=== PATIENT | male | born 1980 | race Caucasian/White ===

== ENCOUNTER 2020-11-10 13:41 | Emergency (ER) | payer MEDICARE, MEDICAID ==
[~2020-11-10] VITALS: Ht 182.9 cm; Wt 113.6 kg
[2020-11-10 13:55] VITALS: BP 123/68
--- NOTE | 2020-11-10 14:49 | RAD ---
Right foot 3 views, right ankle 3 views. HISTORY: Pain Right ankle 3 views were taken of the right ankle. There is not evidence of an acute fracture or osseous abnormal ity. Right foot 3 views were taken of the right foot. There is not evidence of an acute fracture or osseous abnormali ty. IMPRESSION: 1. No acute osseous normality right foot. 2. No acute osseous abnormality right ankle. Electronically signed by: Shady Raya MD (11/10/2020 2:47 PM) [id number]
--- NOTE | 2020-11-10 15:22 | PHYS DOC ---
Past Medical History Past Medical History: Depression, Other Past Surgical History: Appendectomy, Other Additional Past Surgical Histo: KNEE Smoking Status: Current Every Day Smoker Additional Information: 1 PPD Alcohol Use: None General Adult EDM: Chief Complaint: TOE PROBLEM HPI: HPI: Patient is a 39 year old male with history of depression presented to the ED today complaining of mild intermittent right fifth toe pain and right ankle pain, states symptoms are chronic but got worse in the last couple days. Denies any injury but states has been doing jumping jacks for exercise. States symptoms are worse when he is doing jumping jacks. Denies anything specifically relieving the symptoms. Review of Systems: Review of Systems: Constitutional: Denies fever or chills. [] Musculoskeletal: Reports right ankle and right fifth toe pain. Denies back pain Integument: Denies rash. [] Neurologic: Denies headache, focal weakness or sensory changes. [] Psychiatric: Denies depression or anxiety. [] Heart Score: C/O Chest Pain: N/A Risk Factors: Risk Factors: DM, Current or recent (<one month) smoker, HTN, HLP, family history of CAD, obesity. Risk Scores: Score 0 - 3: 2.5% MACE over next 6 weeks - Discharge Home Score 4 - 6: 20.3% MACE over next 6 weeks - Admit for Clinical Observation Score 7 - 10: 72.7% MACE over next 6 weeks - Early Invasive Strategies Allergies: Allergies: Allergies Coded Allergies Type Severity Reaction Last Updated Verified No Known Drug Allergies 11/10/20 No Physical Exam: PE: Constitutional: Well developed, well nourished, no acute distress, non-toxic appearance. [] Skin: Warm, dry, no erythema, no rash. [] Back: No tenderness, no CVA tenderness. [] Extremities: Right ankle with no edema, no ecchymosis, no tenderness on exam, full range of motion to the right ankle, right foot fifth toe appears to be slightly underneath the fourth toe, patient states this is chronic. Full range of motion to the right foot. No navicular bone tenderness, no tenderness on the base of the fifth metatarsal. +2 right pedal pulse. Cap refill less than 2 seconds to right toes Neurologic: Alert and oriented X 3, normal motor function, normal sensory function, no focal deficits noted. [] Psychologic: Affect normal, judgement normal, mood normal. [] Current Patient Data: Vital Signs: Vital Signs Date Time Temp Pulse Resp B/P (MAP) Pulse Ox O2 Delivery O2 Flow Rate FiO2 11/10/20 13:55 98.0 85 20 123/68 (86) 97 Room Air 98.0 EKG: EKG: [] Radiology/Procedures: Radiology/Procedures: []PROCEDURE: FOOT RIGHT 3V Right foot 3 views, right ankle 3 views. HISTORY: Pain Right ankle 3 views were taken of the right ankle. There is not evidence of an acute fracture or osseous abnormality. Right foot 3 views were taken of the right foot. There is not evidence of an acute fracture or osseous abnormality. IMPRESSION: 1. No acute osseous normality right foot. 2. No acute osseous abnormality right ankle. Electronically signed by: Patti Carney MD (11/10/2020 2:47 PM) [id number] DICTATED and SIGNED BY: PATTI CARNEY MD DATE: 11/10/20 [id number] 0 Course & Med Decision Making: Course & Med Decision Making Pertinent Labs and Imaging studies reviewed. (See chart for details) This is a 39-year-old male patient presented to the ED today with right fifth toe and right ankle pain, symptoms are chronic but got worse in the last couple days. Right foot and right ankle x-rays are negative. Discharge to home. Saad Disclaimer: Saad Disclaimer: This electronic medical record was generated, in whole or in part, using a voice recognition dictation system. Departure Departure Impression: Primary Impression: Chronic pain of right ankle Additional Impression: Toe pain, right Disposition: HOME / SELF CARE / HOMELESS Condition: STABLE Referrals: NO PCP (PCP) CRYSTAL SOLIS [employer] INST[employer]ER November 10, 2020 15:21
== END 2020-11-10 15:15 | disposition home or self-care (01) ==
LOC: ER 13:41
DX: G89.29 Other chronic pain (principal); M79.674 Pain in right toe(s); M25.571 Pain in right ankle and joints of right foot; F17.200 Nicotine dependence, unspecified, uncomplicated; F32.9 Major depressive disorder, single episode, unspecified
CPT/HCPCS: 73610; 73630; 99284

== ENCOUNTER 2021-09-06 16:26 | Emergency (ER) | payer MEDICAID, MEDICARE, OTHER ==
[~2021-09-06] VITALS: Ht 182.9 cm; Wt 91.0 kg
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
[2021-09-06 17:59] LABS: BASO % 0 % (0-3); EOS # 0.1 x10^3/uL (0.0-0.7); EOS % 1 % (0-3); HEMATOCRIT 46.1 % (39.0-53.0); HEMOGLOBIN 15.5 g/dL (13.0-17.5); LYMPH # 2.3 x10^3/uL (1.0-4.8); LYMPH % 17 % (24-48); MEAN CORPUSCULAR HEMOGLOBIN 29 pg (25-35); MEAN CORPUSCULAR HGB CONC 34 g/dL (31-37); MEAN CORPUSCULAR VOLUME 86 fL (79-100); MONO # 1.5 x10^3/uL (0.0-1.1); MONO % 12 % (0-9); NEUT # 9.2 x10^3/uL (1.8-7.7); NEUT % 70 % (31-73); PLATELET COUNT 207 x10^3/uL (140-400); RED BLOOD COUNT 5.36 x10^6/uL (4.30-5.70); RED CELL DISTRIBUTION WIDTH 14.8 % (11.5-14.5); WHITE BLOOD COUNT 13.2 x10^3/uL (4.0-11.0)
[2021-09-06 18:11] LABS: CALCIUM 8.8 mg/dL (8.5-10.1); GFR 83.2
[2021-09-06 18:15] LABS: ACETAMIN < 2 mcg/ml (10-30); ETHANOL < 10 mg/dL (0-10); SALIC 2.9 mg/dL (2.8-20.0)
[2021-09-06 18:18] LABS: ALBUMIN 4.2 g/dL (3.4-5.0); ALBUMIN/GLOBULIN RATIO 1.2 (1.0-1.7); TOTAL BILIRUBIN 0.9 mg/dL (0.2-1.0); TOTAL PROTEIN 7.6 g/dL (6.4-8.2)
[2021-09-06 20:56] LABS: AMPHETAMINE/METHAMPHETAMINE NEG (NEG); BARBITURATES NEG (NEG); BENZODIAZEPINES NEG (NEG); CANNABINOIDS NEG (NEG); COCAINE NEG (NEG); METHADONE NEG (NEG); OPIATES NEG (NEG); PHENCYCLIDINE NEG (NEG)
[2021-09-06 21:03] LABS: BACTERIA,URINE 0 /HPF (0-FEW); RBC,URINE 0 /HPF (0-2); WBC,URINE 0 /HPF (0-4)
--- NOTE | 2021-09-07 07:59 | EKG ---
[facility] [address] [place] [address] Test Date: 2021-09-06 Test Time: 19:36:34 Pat Name: RAD MILLER Department: Room: Gender: M Behavioral Health Worker: : 1980 Requested By: CAROLYN KLINE Order Number: [id number] Reading MD: Benji Bojorquez MD Measurements Intervals Independence Rate: 63 P: 32 ID: [id number] QRS: 41 QRSD: 88 T: 56 QT: 418 QTc: 431 Interpretive Statements SINUS RHYTHM Electronically Signed On 09-08-2021 17:41:12 CDT by Benji Bojorquez MD
[2021-09-07] MEDS ORDERED: MAGNESIUM HYDROXIDE 2,400 MG/30 ML ORAL.SUSP. PO ONE (12:45)
[2021-09-07 15:00] VITALS: BP 113/85
== END 2021-09-07 20:58 | disposition home or self-care (01) ==
LOC: ER 16:26
DX: T50.992A Poisoning by other drugs, medicaments and biological substances, intentional self-harm, initial encounter (principal); R45.851 Suicidal ideations; F17.200 Nicotine dependence, unspecified, uncomplicated; Z20.822 Contact with and (suspected) exposure to COVID-19; Y92.89 Other specified places as the place of occurrence of the external cause
CPT/HCPCS: 36415; 80053; 80307; 80329; 81001; 84484; 85025; 87426; 87491; 87591; 93005; 99285; G0480; U0003